=== PATIENT | male | born 1985 | race Caucasian/White ===

== ENCOUNTER → 2021-05-16 14:32 | Outpatient (CLI) | payer OTHER, SELFPAY ==
--- NOTE | 2021-05-16 14:34 | DI.MRI.S_ITS ---
PROCEDURE: MR THORACIC SPINE WO CON INDICATIONS: chronic thoracic pain TECHNIQUE: Noncontrast sagittal T1 spine echo and T2 fast spin echo, sagittal STIR, axial T1 and T2 fast spin echo through the thoracic spine. COMPARISON: None. FINDINGS: Image quality: Excellent. Alignment and Curvature: There is normal bony alignment. Bone Marrow: Marrow is of normal overall signal. No acute vertebral body compression fractures. Spinal Cord: Visualized spinal cord is normal in size and signal. Paraspinous Soft Tissues: No paravertebral masses. Miscellaneous: There is a mild focal left posterior lateral disc protrusion at T7-T8 which likely impinges on the ventral horn of the left T7 nerve root in the left lateral recess. Reference coronal image 9 of series 4 and axial image 3 of series 8. On axial images, central canal and foramina appear widely patent at all other scanned levels. IMPRESSION: 1. A mild focal left posterior lateral disc protrusion at T7-T8 likely impinges on the ventral horn of the left T7 nerve root in the left lateral recess. 2. No canal stenosis or foraminal stenosis at other thoracic levels. Dictated by: Reji Horvath M.D. on 05/17/2021 at 8:17 Approved by: Reji Horvath M.D. on 05/17/2021 at 8:22
== END ==
PROVIDERS: PCP Nurse Practitioner; Referring Provider Physical Medicine & Rehabilitation; Visit Provider Physical Medicine & Rehabilitation
DX: M51.24 Other intervertebral disc displacement, thoracic region; G89.29 Other chronic pain
CPT/HCPCS: 72146